=== PATIENT | female | born 1935 | race Two or more races ===

== ENCOUNTER → 2021-11-26 | Outpatient (CLI) | payer MEDICAID | END | disposition home or self-care (01) | LOC: Rad HDHVI 08:00 | PROVIDERS: ATTEND Internal Medicine | DX: I07.1 Rheumatic tricuspid insufficiency (principal); R94.31 Abnormal electrocardiogram [ECG] [EKG]; E78.5 Hyperlipidemia, unspecified | CPT/HCPCS: 93306 ==

== ENCOUNTER → 2021-12-06 | Outpatient (CLI) | payer MEDICAID ==
[~2021-12-06] MED LIST: IOHEXOL 350 MG/ML 100ML IJ ONE
[2021-12-06 11:48] VITALS: BP 100/58
[2021-12-06 12:25] VITALS: BP 149/56
== END | disposition home or self-care (01) ==
LOC: Rad HDHVI 09:37
PROVIDERS: ATTEND Internal Medicine
DX: N28.1 Cyst of kidney, acquired (principal); K76.0 Fatty (change of) liver, not elsewhere classified; R94.4 Abnormal results of kidney function studies; K57.30 Diverticulosis of large intestine without perforation or abscess without bleeding; K40.90 Unilateral inguinal hernia, without obstruction or gangrene, not specified as recurrent
CPT/HCPCS: 36415; 74177; 82565; 84520; G0463; Q9967

== ENCOUNTER → 2022-07-16 | Outpatient (CLI) | payer MEDICAID ==
[~2022-07-16] VITALS: Ht 144.8 cm; Wt 43.5 kg
[~2022-07-16] MED LIST changes: +ADENOSINE 37 MG in GIVE UN-DILUTED 0 ML IV ONE; +ADENOSINE 90 MG/30 ML INJ IV ONE; -IOHEXOL 350 MG/ML 100ML IJ ONE
== END | disposition home or self-care (01) ==
LOC: Rad HDHVI 11:16
PROVIDERS: ATTEND Internal Medicine
DX: I25.2 Old myocardial infarction (principal); E11.9 Type 2 diabetes mellitus without complications; I10 Essential (primary) hypertension; E78.5 Hyperlipidemia, unspecified; F17.210 Nicotine dependence, cigarettes, uncomplicated
CPT/HCPCS: 78452; 93005; 96374; 96375; A9500; J0153

== ENCOUNTER 2023-04-02 03:57 | Inpatient (IN) | payer OTHER, MEDICAID ==
[~2023-04-02] VITALS: Ht 144.8 cm; Wt 50.0 kg
[2023-04-02 05:07] LABS: Basophils # (auto) 0.1 10 ^3/uL (0-0.2); Eosinophils # (auto) 0.1 10 ^3/uL (0-0.8); Hemoglobin 12.4 g/dL (12.2-16.2); Lymphocytes # (auto) 0.5 10 ^3/uL (0.4-5.4); Lymphocytes % (auto) 2.7 % (10.0-50.0); Monocytes # (auto) 0.9 10 ^3/uL (0-1.3); White Blood Cell 19.5 10^3/uL (4.4-10.8)
[2023-04-02 05:09] LABS: Basophils % (auto) 0.7 % (0.0-2.0); Eosinophils % (auto) 0.3 % (0.0-7.0); Hematocrit 39.4 % (36.0-46.0); Mean Corpuscular Hemoglobin 26.4 pg (28.0-32.0); Mean Corpuscular Hgb Conc. 31.5 g/dL (32.0-36.0); Mean Corpuscular Volume 83.8 fL (80.0-100.0); Monocytes % (auto) 4.6 % (0.0-12.0); Neutrophils # (auto) 17.9 10 ^3/uL (1.6-8.6); Neutrophils % (auto) 91.7 % (37.0-80.0)
[2023-04-02 05:19] LABS: Alanine Aminotransferase 13 U/L (7-40); Albumin 3.7 g/dL (3.2-4.8); Alkaline Phosphatase 82 U/L (46-116); Anion Gap 10.3 (5-15); Aspartate Aminotransferase 20 U/L (13-40); Bilirubin, Total 0.7 mg/dL (0.2-1.0); Blood Urea Nitrogen 27 mg/dL (9-23); Calcium 8.6 mg/dL (8.7-10.4); Carbon Dioxide 21.7 mmol/L (20-30); Chloride 106 mmol/L (98-107); Glucose 205 mg/dL (74-106); Lactic Acid w/Reflex 2.6 mmol/L (0.4-2.0); Potassium 3.8 mmol/L (3.5-5.1); Sodium 138 mmol/L (136-145); Total Protein 6.5 g/dL (5.7-8.2)
[2023-04-02 05:45] VITALS: PULSE 88; RESP 18; O2SAT 95
[2023-04-02] MEDS ORDERED: ASPirin-EC 325mg tab PO ONE (06:30)
[2023-04-02] MEDS ORDERED: levoFLOXacin 750MG 150 ML IV ONE (06:30)
[2023-04-02] MEDS ORDERED: SODIUM CHLORIDE 0.9% 1,650 ML IV ONE (06:30)
[2023-04-02] MEDS ORDERED: ONDANSETRON HCL 4 MG/2 ML VIAL IV ONE (06:45)
[2023-04-02 07:40] LABS: Urine Bacteria FEW /hpf (None Seen); Urine Blood Negative /uL (Negative); Urine Clarity Clear (Clear); Urine Protein, UAD 1+ (Negative); Urine Specific Gravity 1.015 (1.001-1.035); Urine Urobilinogen Normal (Negative); Urine WBC 5 /hpf (0 - 5); Urine pH 5.5 (5.0-8.0)
[2023-04-02 07:42] LABS: Urine Color Straw (Yellow)
[2023-04-02 08:30] VITALS: PULSE 77; RESP 21; O2SAT 95
[2023-04-02] MEDS ORDERED: ONDANSETRON HCL 4 MG/2 ML VIAL IV PRN (09:15)
[2023-04-02] MEDS ORDERED: DEXTROSE (50%) 50ML SYRG IV PRN (09:15)
[2023-04-02] MEDS: SODIUM CHLORIDE 0.9% 1,000 ML IV SCH (09:46)
[2023-04-02] MEDS: ENOXAPARIN SOD 30 MG/0.3 ML SYRINGE SC SCH (10:30)
[2023-04-02] MEDS: ASPirin 81 mg TAB PO SCH (10:31)
[2023-04-02] MEDS: CLOPIDOGREL BISULFATE 75 MG TAB PO SCH (10:31)
[2023-04-02 10:45] LABS: INR 1.21 (0.9-1.15); Prothrombin Time 12.5 sec (9.3-11.8)
[2023-04-02 11:12] LABS: COVID19 ANTIGEN SOFIA FIA NEGATIVE (NEGATIVE)
[2023-04-02 11:13] LABS: Rapid Influenza A Negative (Negative); Rapid Influenza B Negative (Negative)
[2023-04-02] MEDS: InsuLIN REG 1unit/0.01ml Soln (100units/ml) SC SCH ×3 (11:30→22:00)
[2023-04-02] MEDS: ACCU-CHEK COMFORT CURVE STRIP VI SCH ×3 (12:19→22:40)
[2023-04-02] MEDS: ATORVASTATIN 20 MG TAB PO SCH (22:41)
[2023-04-02] MEDS: MORPHINE SULFATE INJ 2 MG/ml SYRG IV PRN (22:42)
[2023-04-03] VITALS (8 sets, daily range): BP systolic 110–163; BP diastolic 51–68; PULSE 60–75; RESP 16–20; TEMP 97.6–98.8; O2SAT 93–100
[2023-04-03] MEDS: SODIUM CHLORIDE 0.9% 1,000 ML IV SCH ×3 (01:40→21:40)
[2023-04-03] MEDS: MORPHINE SULFATE INJ 2 MG/ml SYRG IV PRN (06:54)
[2023-04-03] MEDS: InsuLIN REG 1unit/0.01ml Soln (100units/ml) SC SCH ×4 (07:00→21:54)
[2023-04-03] MEDS: ACCU-CHEK COMFORT CURVE STRIP VI SCH ×4 (07:05→21:40)
[2023-04-03 07:24] LABS: Basophils # (auto) 0 10 ^3/uL (0-0.2); Basophils % (auto) 0.3 % (0.0-2.0); Eosinophils # (auto) 0.1 10 ^3/uL (0-0.8); Eosinophils % (auto) 0.6 % (0.0-7.0); Hematocrit 33.4 % (36.0-46.0); Hemoglobin 10.9 g/dL (12.2-16.2); Lymphocytes # (auto) 1.5 10 ^3/uL (0.4-5.4); Lymphocytes % (auto) 13.5 % (10.0-50.0); Mean Corpuscular Hemoglobin 27.1 pg (28.0-32.0); Mean Corpuscular Hgb Conc. 32.8 g/dL (32.0-36.0); Mean Corpuscular Volume 82.6 fL (80.0-100.0); Monocytes % (auto) 8.7 % (0.0-12.0); Neutrophils # (auto) 8.6 10 ^3/uL (1.6-8.6); Neutrophils % (auto) 76.9 % (37.0-80.0); Red Blood Cells 4.05 10^6/uL (4.0-5.20); Red Cell Distribution Width 14.8 % (11.8-14.3); White Blood Cell 11.2 10^3/uL (4.4-10.8)
[2023-04-03] MEDS ORDERED: LISI2.5T47 PO (08:07)
[2023-04-03] MEDS ORDERED: ATOR10TA52 PO (08:07)
[2023-04-03] MEDS ORDERED: EMPA1TAB PO (08:07)
[2023-04-03] MEDS ORDERED: METF-370 PO (08:07)
[2023-04-03] MEDS ORDERED: CLOP75TA70 PO (08:07)
[2023-04-03 08:23] LABS: Albumin 3.2 g/dL (3.2-4.8); Alkaline Phosphatase 64 U/L (46-116); Anion Gap 7.8 (5-15); Aspartate Aminotransferase 11 U/L (13-40); BUN/Creatinine Ratio 13.3 (10.0-20.0); Bilirubin, Total 0.4 mg/dL (0.2-1.0); Blood Urea Nitrogen 10 mg/dL (9-23); Calcium 7.9 mg/dL (8.7-10.4); Carbon Dioxide 21.2 mmol/L (20-30); Chloride 109 mmol/L (98-107); Glucose 86 mg/dL (74-106); Potassium 3.4 mmol/L (3.5-5.1); Sodium 138 mmol/L (136-145); Total Protein 5.8 g/dL (5.7-8.2)
[2023-04-03 08:24] LABS: Alanine Aminotransferase < 9 U/L (7-40)
[2023-04-03] MEDS: CLOPIDOGREL BISULFATE 75 MG TAB PO SCH (09:34)
[2023-04-03] MEDS: ENOXAPARIN SOD 30 MG/0.3 ML SYRINGE SC SCH (09:34)
[2023-04-03] MEDS: ASPirin 81 mg TAB PO SCH (09:34)
[2023-04-03] MEDS ORDERED: levoFLOXacin 250MG 50 ML IV SCH (10:00)
[2023-04-03] MEDS: CEFEPIME 1GM/ 50ML 50 ML IV SCH (21:39)
[2023-04-03] MEDS: ATORVASTATIN 20 MG TAB PO SCH (21:40)
[2023-04-04 05:00] VITALS: BP 152/73; PULSE 63; RESP 20; TEMP 98.4; O2SAT 97
[2023-04-04] MEDS: ACCU-CHEK COMFORT CURVE STRIP VI SCH ×4 (06:44→22:24)
[2023-04-04] MEDS: InsuLIN REG 1unit/0.01ml Soln (100units/ml) SC SCH ×4 (06:45→22:21)
[2023-04-04 08:00] VITALS: BP 135/72; PULSE 69; PULSE 70; RESP 18; TEMP 98.6; O2SAT 100; O2SAT 96
[2023-04-04] MEDS: CLOPIDOGREL BISULFATE 75 MG TAB PO SCH (08:37)
[2023-04-04] MEDS: ENOXAPARIN SOD 30 MG/0.3 ML SYRINGE SC SCH (08:37)
[2023-04-04] MEDS: CEFEPIME 1GM/ 50ML 50 ML IV SCH ×2 (08:37→21:21)
[2023-04-04] MEDS: ASPirin 81 mg TAB PO SCH (08:37)
[2023-04-04 12:00] VITALS: BP 103/56; PULSE 63; RESP 18; TEMP 98.3; O2SAT 94
[2023-04-04] MEDS: DOCUSATE SOD 100 MG CAP PO PRN ×2 (12:20→16:56)
[2023-04-04 16:00] VITALS: BP 156/72; PULSE 76; RESP 16; TEMP 97.3; O2SAT 100
[2023-04-04] MEDS: SODIUM CHLORIDE 0.9% 1,000 ML IV SCH (18:27)
[2023-04-04 20:00] VITALS: BP 166/79; PULSE 70; PULSE 78; RESP 18; TEMP 97.2; O2SAT 100
[2023-04-04] MEDS ORDERED: hydrALAZINE HCL 20 MG/ML VL IV ONE (21:15)
[2023-04-04 22:00] VITALS: BP 166/79; PULSE 78; RESP 18; TEMP 97.2; O2SAT 100
[2023-04-04] MEDS: ATORVASTATIN 20 MG TAB PO SCH (22:19)
[2023-04-05] VITALS (7 sets, daily range): BP systolic 116–158; BP diastolic 54–80; PULSE 67–79; RESP 16–19; TEMP 97.8–98.6; O2SAT 95–100
[2023-04-05] MEDS: InsuLIN REG 1unit/0.01ml Soln (100units/ml) SC SCH ×4 (07:00→21:31)
[2023-04-05] MEDS: ACCU-CHEK COMFORT CURVE STRIP VI SCH ×4 (07:02→21:37)
[2023-04-05] MEDS: CEFEPIME 1GM/ 50ML 50 ML IV SCH ×2 (08:35→20:16)
[2023-04-05] MEDS: CLOPIDOGREL BISULFATE 75 MG TAB PO SCH (08:35)
[2023-04-05] MEDS: ASPirin 81 mg TAB PO SCH (08:35)
[2023-04-05] MEDS: ENOXAPARIN SOD 30 MG/0.3 ML SYRINGE SC SCH (08:36)
[2023-04-05] MEDS: DOCUSATE SOD 100 MG CAP PO PRN (08:37)
[2023-04-05] MEDS: SODIUM CHLORIDE 0.9% 1,000 ML IV SCH (10:25)
[2023-04-05] MEDS ORDERED: LACTULOSE 20Gm/30ML SOLN PO ONE (10:45)
[2023-04-05] MEDS: ATORVASTATIN 20 MG TAB PO SCH (21:33)
[2023-04-06] MEDS: SODIUM CHLORIDE 0.9% 1,000 ML IV SCH ×2 (01:09→13:21)
[2023-04-06 05:00] VITALS: BP 155/80; PULSE 76; RESP 18; TEMP 97.5; O2SAT 99
[2023-04-06] MEDS: ACCU-CHEK COMFORT CURVE STRIP VI SCH ×3 (06:59→16:49)
[2023-04-06] MEDS: InsuLIN REG 1unit/0.01ml Soln (100units/ml) SC SCH ×3 (07:00→16:49)
[2023-04-06 08:00] VITALS: PULSE 72; PULSE 75; RESP 16; O2SAT 96
[2023-04-06] MEDS: CEFEPIME 1GM/ 50ML 50 ML IV SCH (08:00)
[2023-04-06] MEDS ORDERED: LEVO500T91 PO (08:23)
[2023-04-06 09:40] VITALS: BP 119/48; PULSE 75; RESP 16; TEMP 98.3; O2SAT 97
[2023-04-06] MEDS: ASPirin 81 mg TAB PO SCH (09:41)
[2023-04-06] MEDS: CLOPIDOGREL BISULFATE 75 MG TAB PO SCH (09:41)
[2023-04-06] MEDS: ENOXAPARIN SOD 30 MG/0.3 ML SYRINGE SC SCH (09:42)
== END 2023-04-06 18:00 | disposition home or self-care (01) | DRG 871 ==
LOC: ER 03:57 → EDBD 03:57 → TELE 09:33 → TELE-CENTR 04-03 05:00
PROVIDERS: ADMIT Nurse Practitioner Family; ATTEND Family Medicine
DX: A41.51 Sepsis due to Escherichia coli [E. coli] (principal); J15.9 Unspecified bacterial pneumonia; R65.21 Severe sepsis with septic shock; E46 Unspecified protein-calorie malnutrition; I69.354 Hemiplegia and hemiparesis following cerebral infarction affecting left non-dominant side; N39.0 Urinary tract infection, site not specified; E03.9 Hypothyroidism, unspecified; E11.9 Type 2 diabetes mellitus without complications; Z66 Do not resuscitate; Z68.32 Body mass index [BMI] 32.0-32.9, adult; E86.0 Dehydration; E78.00 Pure hypercholesterolemia, unspecified; F03.90 Unspecified dementia, unspecified severity, without behavioral disturbance, psychotic disturbance, mood disturbance, and anxiety; H54.62 Unqualified visual loss, left eye, normal vision right eye; I10 Essential (primary) hypertension; M81.0 Age-related osteoporosis without current pathological fracture; I25.2 Old myocardial infarction; B96.20 Unspecified Escherichia coli [E. coli] as the cause of diseases classified elsewhere
CPT/HCPCS: 36415; 70450; 71045; 80053; 81001; 82962; 83036; 83605; 83735; 83880; 84443; 84484; 85025; 85610; 87040; 87077; 87086; 87088; 87186; 87426; 87804; 93005; 93306; G0378; J1815; J1956; J2405